=== PATIENT | female | born 1995 | race Caucasian/White ===

== ENCOUNTER 2018-06-25 07:48 | Day surgery (SDC) | payer OTHER ==
[2018-06-11 12:00] LABS: HEMATOCRIT 39.3 % (36.0-47.0); HEMOGLOBIN 13.4 g/dL (12.0-15.5); MEAN CORPUSCULAR HEMOGLOBIN 30.4 pg (27.0-33.4); MEAN CORPUSCULAR HGB CONC 34.1 g/dL (32.0-36.0); MEAN CORPUSCULAR VOLUME 89 fl (80-97); PLATELET COUNT 335 10^3/uL (150-450); RED CELL DISTRIBUTION WIDTH 12.7 % (11.5-14.0)
[2018-06-11 12:26] LABS: ANION GAP 12 (5-19); BLOOD UREA NITROGEN 13 mg/dL (7-20); CALCIUM 9.6 mg/dL (8.4-10.2); CARBON DIOXIDE 27 mmol/L (22-30); CHLORIDE 104 mmol/L (98-107); GLUCOSE 77 mg/dL (75-110); POTASSIUM 4.2 mmol/L (3.6-5.0)
[2018-06-11 12:36] LABS: APPEARANCE,URINE SLIGHTLY HAZY; COLOR,URINE LIGHT YELLOW
[2018-06-11 12:37] LABS: ADD MANUAL MICROSCOPIC YES; BILIRUBIN,URINE NEGATIVE (NEGATIVE); GLUCOSE, URINE NEGATIVE (NEGATIVE); KETONES,URINE NEGATIVE (NEGATIVE); LEUKOCYTE ESTERASE,URINE NEGATIVE (NEGATIVE); NITRITE,URINE NEGATIVE (NEGATIVE); PROTEIN,URINE NEGATIVE (NEGATIVE); URINE SPECIFIC GRAVITY 1.019; UROBILINOGEN,URINE NEGATIVE mg/dL (<2.0)
[2018-06-11 12:38] LABS: AMORPHOUS SEDIMENT,UR 1+; BACTERIA,URINE TRACE /HPF; RBC,URINE 0-1 /HPF
[~2018-06-25 07:48] MED LIST: CEFAZOLIN 2 GM/D5W RTU 2 GM/50 ML RTUPB IV ONE; CEFAZOLIN 2 GM/D5W RTU 2 GM/50 ML RTUPB IV PRN; LACTATED RINGERS 1000 ML IV PRN; LIDOCAINE 0.5% INJ-PF (5 MG/ML) 50 ML SDV SUBCUT PRN
[2018-06-25] MEDS ORDERED: LIDOCAINE 2% INJ-PF (20 MG/ML) 10 ML AMPUL ONE (09:53)
[2018-06-25] MEDS ORDERED: MIDAZOLAM 2 MG/2 ML INJ ONE (09:53)
[2018-06-25] MEDS ORDERED: HYDROMORPHONE HCL INJ/PF 2 MG/ML AMPULE ONE (09:53)
[2018-06-25] MEDS ORDERED: PROPOFOL INJ 200 MG/20 ML VIAL IV ONE (09:54)
[2018-06-25] MEDS ORDERED: ACETAMINOPHEN 1,000 MG/100 ML RTUPB IV ONE (09:54)
[2018-06-25] MEDS ORDERED: BUPIVACAINE HCL 0.5 % INJ/PF 30 ML SDV ONE (09:56)
[2018-06-25] MEDS ORDERED: SCOPOLAMINE HYDROBROMIDE 1.5 MG PATCH.TD72 ONE (10:24)
[2018-06-25] MEDS ORDERED: DIPHENHYDRAMINE HCL 50 MG/ML VIAL IV PRN (10:40)
[2018-06-25] MEDS ORDERED: PROMETHAZINE HCL INJ 25 MG/1 ML VIAL IV PRN ×2 (10:40)
[2018-06-25] MEDS ORDERED: ONDANSETRON HCL INJ/PF 4 MG/2 ML SDV IV PRN ×2 (10:40→12:13)
[2018-06-25] MEDS ORDERED: FENTANYL CITRATE INJ/PF 100 MCG/2 ML AMPUL IV PRN ×3 (10:40)
[2018-06-25] MEDS ORDERED: MEPERIDINE HCL/PF INJ 25 MG/1 ML DISP.SYRIN IV PRN (10:40)
[2018-06-25] MEDS ORDERED: OXYCODONE-ACETAMINOPHEN 5-325 MG TABLET PO PRN ×3 (10:40→12:13)
[2018-06-25] MEDS ORDERED: DEXAMETHASONE SOD PHOSPHATE INJ 4 MG/1 ML VIAL ONE (10:42)
[2018-06-25] MEDS ORDERED: METOCLOPRAMIDE HCL INJ/PF 10 MG/2 ML SDV ONE (10:42)
[2018-06-25] MEDS ORDERED: ONDANSETRON HCL INJ/PF 4 MG/2 ML SDV ONE (10:42)
[2018-06-25] MEDS ORDERED: MEPERIDINE HCL/PF INJ 25 MG/1 ML DISP.SYRIN ONE (11:56)
--- NOTE | 2018-06-25 12:02 | Discharge Summary ---
Discharge Summary (SDC) - Discharge Final Diagnosis: Right third metacarpal malunion Date of Surgery: 06/25/18 Discharge Date: 06/25/18 Condition: Good Treatment or Instructions: Schedule Follow Up w/ Dr. Yamil Stephens @ [facility] to be seen in 10-14 days or as scheduled [place]: [place]: [place]: Ice and elevate Keep splint clean/dry/intact. If your fingers become numb please unwrap the Atilio wrap but leave the splint in place, if the sensation does not return within 30 minutes please return to the emergency department. May begin finger range of motion attempting to make full fist. Stool softener of choice when on pain medication. Prescriptions: Oxycodone HCl/Acetaminophen [Percocet 5-325 mg Tablet] 1 - 2 tab PO Q6 #25 tablet Discharge Diet: As Tolerated Respiratory Treatments at Home: Deep Breathing/Coughing Discharge Activity: No Lifting Over 10 Pounds, No Lifting/Push/Pulling Report the Following to Your Physician Immediately: Fever over 101 Degrees, Unusual Bleeding, Redness, Swelling, Warmth, Increased Soreness
[2018-06-25] MEDS ORDERED: MORPHINE SULFATE 10 MG/ML INJ IV PRN (12:13)
--- NOTE | 2018-06-25 12:13 | Operative Report ---
Operative Report DATE OF SURGERY: 06/25/18 PREOPERATIVE DIAGNOSIS: Right third metacarpal malunion POSTOPERATIVE DIAGNOSIS: Same OPERATION: Corrective osteotomy right third metacarpal malunion SURGEON: BELÉN MOSES ANESTHESIA: GA COMPLICATIONS: None ESTIMATED BLOOD LOSS: Minimal PROCEDURE: Indication for above procedure: Pleasant 23-year-old female who sustained a fracture of her right third metacarpal. She was treated nonoperatively and then began additional therapy once the fracture healed. Unfortunately she developed malrotation of the metacarpal resulting in scissoring of her digits when she attempted to make a fist. At that point we discussed treatment options including observation versus operative intervention. After discussing risks and benefits of both and the fact that patient failed conservative management decision was made to proceed with operative intervention. Procedure In Detail: Patient was seen and evaluated in the preoperative holding area. The RIGHT upper extremity was initialized and marked. Patient received 2g of Ancef IV for bacterial prophylaxis. Patient was taken back to the operative room where transferred to the operative table and placed under general anesthesia. Once they were adequately anesthetized a nonsterile tourniquet was placed on the upper extremity. A surgical team debriefing was performed ensuring all instrumentation was available, the surgical procedure was discussed with possible concerns reviewed. The upper extremity was prepped with chlorhexidine and alcohol and draped in a sterile fashion. A timeout was done identifying correct patient, procedure and extremity everyone in attendance agree with this and verbalized no concerns. The extremity was exsanguinated the tourniquet was inflated to 250 mmHg. Longitudinal skin incision was made over the third metacarpal. Blunt dissection performed. A small peripheral veins were coagulated bipolar cautery. The extensor mechanism was then isolated and retracted radially and ulnarly respectively. The dorsal interossei fascia was then split to expose the underlying bone. The periosteum was then elevated to expose the shaft. Preoperatively determined patient had approximately 15 degrees of malrotation and thus would require 1.5 mm of correction to improve patient's malrotation. The osteotomy step cut was then drawn onto the bone the distal aspect ulnarly in line with the malrotation in the proximal aspect radially. An oscillating skull saw was then utilized to achieve the osteotomy bicortical proximally and distally and unicortical down the center. Throughout utilization of the oscillating saw the area was irrigated to avoid bone necrosis. Once osteotomy was complete a reduction tenaculum was utilized to correct the malrotation. Once malrotation was corrected C-arm fluoroscopy was obtained confirming acceptable alignment. With wrist extension and forearm squeeze there is correction of patient's malrotation there is no evidence of residual scissoring to the adjacent ring finger thus I felt this was the adequate amount of correction. The proximal aspect the osteotomy was then reapproximated with a [place] 2.3 mm cortex screw. The distal aspect was reapproximated with a 1.7 mm cortex screw once complete any remaining defects were filled with the previous bone that was removed from the osteotomy. C-arm fluoroscopy was obtained confirming acceptable reduction of the fracture. There is no evidence of malrotation with wrist extension and forearm squeeze. The wound was copiously irrigated with normal saline. The tourniquet was deflated. Any peripheral bleeding was controlled with bipolar cautery. 20 cc of 0.5% Marcaine without epinephrine was injected for postoperative pain control. The interosseous fascia was then reapproximated with 4-0 Monocryl suture. Skin was closed with a running subcuticular 4-0 Monocryl reinforced with Dermabond and Steri-Strips. Patient was placed in a dorsal blocking splint with the wrist in the neutral position. Sponge counts, instrument counts, needle counts counts were correct. Patient was then awoken from anesthesia. Transferred from the operating room table to the operating room stretcher. There was no intraoperative complications patient tolerated procedure well stable to PACU. Postop plan: Patient will follow-up the office in 2 weeks at which point we will obtain radiographs. Will begin formal range of motion exercises 4 weeks postoperatively and will be set up with occupational therapy at that time.
[2018-06-25] MEDS ORDERED: OXYCODONE-ACETAMINOPHEN 5-325 MG TABLET ONE (12:32)
[2018-06-25] MEDS ORDERED: PROMETHAZINE HCL INJ 25 MG/1 ML VIAL ONE (12:32)
[2018-06-25 15:16] VITALS: BP 135/77
--- NOTE | 2018-06-25 16:58 | RADIOLOGY REPORT (SQ) ---
EXAM DESCRIPTION: HAND RIGHT 2 VIEWS; NO CHG FLUORO COMPLETED DATE/TIME: 06/25/2018 3:55 pm REASON FOR STUDY: RIGHT 3RD METACARPAL CORRECTIVE OSTEOTOMY IN OR S62.322P DISP FX OF SHAFT OF 3RD MC BONE, R HAND, 7THP COMPARISON: None. FLUOROSCOPY TIME: 24 seconds 4 digital C-arm images saved to PACS. TECHNIQUE: Intra-operative images acquired during surgical procedure to evaluate progress. NUMBER OF IMAGES: 4 digital C-arm images LIMITATIONS: None. FINDINGS: 4 C-arm images are submitted during corrective osteotomy at the right 3rd midshaft metacar pal. Bone screws are in place along the osteotomy in good alignment. Please see the operative repor t for further details IMPRESSION: Intra procedural imaging and fluoro COMMENT: Quality ID [id number]: Final reports for procedures using fluoroscopy that document radiation exp osure indices, or exposure time and number of fluorographic images (if radiation exposure indices are not available) Please consult full operative report of the attending physician for description of the procedure. TECHNICAL DOCUMENTATION: JOB ID: [id number] [employer] All Rights Reserved Reading location - IP/workstation name: [facility]
--- NOTE | 2018-06-25 16:58 | RADIOLOGY REPORT (SQ) ---
EXAM DESCRIPTION: HAND RIGHT 2 VIEWS; NO CHG FLUORO COMPLETED DATE/TIME: 06/25/2018 3:55 pm REASON FOR STUDY: RIGHT 3RD METACARPAL CORRECTIVE OSTEOTOMY IN OR S62.322P DISP FX OF SHAFT OF 3RD MC BONE, R HAND, 7THP COMPARISON: None. FLUOROSCOPY TIME: 24 seconds 4 digital C-arm images saved to PACS. TECHNIQUE: Intra-operative images acquired during surgical procedure to evaluate progress. NUMBER OF IMAGES: 4 digital C-arm images LIMITATIONS: None. FINDINGS: 4 C-arm images are submitted during corrective osteotomy at the right 3rd midshaft metacar pal. Bone screws are in place along the osteotomy in good alignment. Please see the operative repor t for further details IMPRESSION: Intra procedural imaging and fluoro COMMENT: Quality ID [id number]: Final reports for procedures using fluoroscopy that document radiation exp osure indices, or exposure time and number of fluorographic images (if radiation exposure indices are not available) Please consult full operative report of the attending physician for description of the procedure. TECHNICAL DOCUMENTATION: JOB ID: [id number] [employer]- All Rights Reserved Reading location - IP/workstation name: [facility]
== END 2018-06-25 14:45 | disposition home or self-care (01) ==
LOC: OROUT 07:48
PROVIDERS: ATTEND Orthopaedic Surgery
DX: S62.32 Displaced fracture of shaft of other metacarpal bone (principal); X58.XXXD Exposure to other specified factors, subsequent encounter; M79.641 Pain in right hand; Z79.899 Other long term (current) drug therapy; Z87.891 Personal history of nicotine dependence; Z88.6 Allergy status to analgesic agent; Z87.892 Personal history of anaphylaxis
CPT/HCPCS: 36415; 85027; 81025; 80048; 81001; 73120; 26615; C1713 ×2; J2250; J3490 ×2; J1100; J2765; J1170; J2550; J2405; J2704; J0690; J0131; J2175